=== PATIENT | male | born 1995 | race African-American/Black ===

== ENCOUNTER 2020-03-01 15:08 | Emergency (ER) | payer SELFPAY ==
[~2020-03-01] VITALS: Ht 182.9 cm; Wt 97.5 kg
--- NOTE | 2020-03-01 15:18 | NUR ---
patient brought in the room waiting to be seen by physician.
--- NOTE | 2020-03-01 15:19 | NUR ---
patient states that he wants to be checked for STD due to painful urination.
--- NOTE | 2020-03-01 15:37 | NUR ---
doctor carrasquillo in the room assessing patient.
[2020-03-01] MEDS ORDERED: CEFTRIAXONE 500 MG VIAL ONE (15:57)
[2020-03-01] MEDS ORDERED: AZITHROMYCIN 250 MG TABLET ONE (15:57)
[2020-03-01] MEDS ORDERED: LIDOCAINE HCL 1% 20 ML VIAL ONE (15:58)
[2020-03-01] MEDS ORDERED: AZITHROMYCIN 250 MG TABLET PO ONE (16:00)
[2020-03-01] MEDS ORDERED: CEFTRIAXONE 1 G VIAL IM ONE (16:00)
--- NOTE | 2020-03-01 16:05 | NUR ---
patient refusing xray for swollen right pinky finger.
--- NOTE | 2020-03-01 16:09 | NUR ---
discharge paperwork given to patient with prescriptions. patient asking about medication reactions information given regarding meds that were given. Addendum: 03/01/20 at 1613 by EUN follow up physician. no prescriptions given
[2020-03-01 16:15] VITALS: BP 132/76
[2020-03-03 11:10] LABS: *GC NAA Negative (Negative); *TRIC.VAG. NAA Negative (Negative)
== END 2020-03-01 16:17 | disposition home or self-care (01) ==
LOC: ER 15:11
DX: N34.2 Other urethritis (principal); S69.91XA Unspecified injury of right wrist, hand and finger(s), initial encounter; W19.XXXA Unspecified fall, initial encounter; Y92.89 Other specified places as the place of occurrence of the external cause; F17.210 Nicotine dependence, cigarettes, uncomplicated; Z72.51 High risk heterosexual behavior
CPT/HCPCS: 87491; 96372; 99283; 99406; J0696; J3490; A4663; Q0144